=== PATIENT | male | born 1980 | race Caucasian/White ===

== ENCOUNTER 2018-12-04 08:55 | Emergency (ER) | payer BC ==
[~2018-12-04] VITALS: Ht 175.3 cm; Wt 94.4 kg
[2018-12-04] MEDS ORDERED: TRAMADOL HCL 50 MG TAB PO ONE (09:45)
[2018-12-04] MEDS ORDERED: PREDNISONE 20 MG TAB PO ONE (09:45)
[2018-12-04] MEDS ORDERED: ULTRAM50 MG PO (09:47)
[2018-12-04] MEDS ORDERED: PREDNISONE20 MG PO (09:48)
[2018-12-04] MEDS ORDERED: TIZANIDINE HCL4 MG PO (09:53)
[2018-12-04 11:24] VITALS: BP 158/97
== END 2018-12-04 10:16 | disposition home or self-care (01) ==
LOC: FSED 08:55
DX: M54.5 Low back pain (principal); F41.1 Generalized anxiety disorder
CPT/HCPCS: 99283; J7512